=== PATIENT | male | born 2000 | race Caucasian/White ===

== ENCOUNTER 2022-12-25 20:40 | Outpatient (CLI) | payer OTHER, SELFPAY | END 2022-12-25 20:41 | disposition home or self-care (01) | LOC: AMB 01-25 13:05 | PROVIDERS: Visit Provider Internal Medicine | DX: S09.90XA Unspecified injury of head, initial encounter (principal); S01.01XA Laceration without foreign body of scalp, initial encounter; W19.XXXA Unspecified fall, initial encounter; Y93.39 Activity, other involving climbing, rappelling and jumping off; Y92.39 Other specified sports and athletic area as the place of occurrence of the external cause | CPT/HCPCS: A0425; A0427 ==